=== PATIENT | male | born 1965 | race Caucasian/White ===

== ENCOUNTER 2024-08-11 09:00 | Day surgery (SDC) | payer BC ==
[2024-08-09 10:06] VITALS: BMI 36.3
[2024-08-11 09:45] VITALS: RESP 16; TEMP 98.2
[2024-08-11] MEDS: IV FLUID CONTINUATION 1,000 ML IV ONE (09:50)
[2024-08-11] MEDS: LACTATED RINGERS 1,000 ML BAG IV STA (09:51)
[2024-08-11] MEDS ORDERED: PROPOFOL 10 MG/ML 20 ML VIAL IV ONE (10:18)
--- NOTE | 2024-08-11 10:40 | P.PCN ---
Date of Procedure: 08/11/24 Procedure(s) Performed: BRIEF HISTORY: Patient is a 58-year-old pleasant white male scheduled for an elective colonoscopy as a part of screening for colon cancer. PROCEDURE PERFORMED: Colonoscopy snare polypectomy. PREOPERATIVE DIAGNOSIS: Screening for colon cancer. IV sedation per Anesthesia. PROCEDURE: After informed consent was obtained, the patient, was brought into the endoscopy unit. IV sedation was administered by Anesthesia under continuous monitoring. Digital rectal examination was normal. Initially the Olympus CF-160 flexible video colonoscope was then inserted in the rectum, gradually advanced into the cecum without any difficulty. Careful examination was performed as the scope was gradually being withdrawn. Ileocecal valve and the appendiceal orifice were visualized and appeared normal. Prep was fair.. Mucosa of the cecum, ascending colon, transverse colon, descending colon, appeared normal. In the sigmoid colon there was a 5 mm polyp that was removed by cold snare polypectomy. Rest of the sigmoid colon, and rectum appeared normal. Retroflexion was performed in the rectum and no lesions were seen. The patient tolerated the procedure well. IMPRESSION: 5 mm distal sigmoid colon polyp status post cold snare polypectomy Rest of the colon appeared normal RECOMMENDATIONS: Findings of this examination were discussed with the patient as well as his family. He was advised to follow-up with the biopsy results. If the biopsy reveals adenoma, recommended repeat colonoscopy in 5 years..
[2024-08-11 10:48] VITALS: BP 104/76
[2024-08-11 11:13] VITALS: PULSE 81
== END 2024-08-11 11:20 | disposition home or self-care (01) ==
LOC: ORWHC2ENDO 09:00
PROVIDERS: ATTEND Internal Medicine Gastroenterology
CPT/HCPCS: 45385; 88305

== ENCOUNTER → 2025-03-02 | Outpatient (CLI) | payer BC ==
--- NOTE | 2025-03-02 10:40 | CT ---
EXAMINATION TYPE: CT soft tissue neck wo con DATE OF EXAM: 03/02/2025 COMPARISON: NONE CLINICAL INDICATION: Male, 59 years old with history of M54.2 CERVICALGIA, Lump on back of neck marke d by radiopaque BB x8 mo. TECHNIQUE: CT scan of the neck is performed without contrast, patient injected with mL of , axial im ages are obtained, coronal and sagittal reformatted images are reviewed. CT DLP: 878.9 mGycm. Automated Exposure Control for Dose Reduction was Utilized. FINDINGS: Lack of IV contrast is noted to lower sensitivity for evaluating mucosal lesions and neck a denopathy. Airway: No gross abnormality seen. Parotid/submandibular glands: No gross abnormality seen. Osseous Structures: Anterior fusion plate with ossific fusion C6-T1 levels . Scoliotic curvature cerv icothoracic spine seen on coronal images. Other: Metallic BB is placed at level of palpable abnormality posterior left inferior C2 level axial image 72. There is no suspicious focal solid or cystic mass or fluid collection at this level. Mild to moderate mucosal thickening inferior aspect bilateral maxillary sinuses. Moderate opacificati on bilateral ethmoid sinuses. IMPRESSION: No suspicious mass at area of clinical concern posterior left upper cervical level. [facility], , 03/02/2025 10:37 AM
== END | disposition home or self-care (01) ==
LOC: RADCTMAIN 08:00
PROVIDERS: ATTEND Family Medicine
DX: M54.2 Cervicalgia (principal)
CPT/HCPCS: 70490